=== PATIENT | male | born 1995 | race Caucasian/White ===

== ENCOUNTER 2017-10-22 13:35 | Emergency (ER) | payer OTHER ==
[~2017-10-22] VITALS: Ht 182.9 cm; Wt 90.0 kg
[2017-10-22 13:35] VITALS: BP 138/66; PULSE 71; RESP 16; TEMP 98.3; O2SAT 100
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
[2017-10-22] MEDS ORDERED: TETANUS/DIPHTHERIA TOXOID ADULT 0.5 ML VIAL IM ONE (14:00)
[2017-10-22] MEDS ORDERED: LIDOCAINE 1%/EPINEPHrine 1:100,000 SOLN 50 ML VIAL INFIL ONE (14:00)
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
[2017-10-22] MEDS ORDERED: BACL10TA PO (14:48)
[2017-10-22] MEDS ORDERED: DICL75TA PO (14:48)
[2017-10-22 15:58] VITALS: BP 132/78
== END 2017-10-22 16:00 | disposition home or self-care (01) ==
LOC: NEPD 13:35
DX: S01.311A Laceration without foreign body of right ear, initial encounter (principal); S16.1XXA Strain of muscle, fascia and tendon at neck level, initial encounter; S60.511A Abrasion of right hand, initial encounter; S50.812A Abrasion of left forearm, initial encounter; V89.2XXA Person injured in unspecified motor-vehicle accident, traffic, initial encounter; Z23 Encounter for immunization
CPT/HCPCS: 12011; 70450; 72125; 73090; 73130; 90471; 90714